=== PATIENT | female | born 1995 | race Caucasian/White ===

== ENCOUNTER 2018-06-23 13:17 | Emergency (ER) | payer OTHER ==
[~2018-06-23] VITALS: Ht 160 cm; Wt 104.3 kg
[2018-06-23] MEDS ORDERED: SYNTHROID50 MCG PO (13:36)
[2018-06-23 14:03] LABS: ABSOLUTE BASOPHILS 0.1 thou/uL (0.0-0.2); ABSOLUTE EOSINOPHILS 0.1 thou/uL (0.0-0.7); ABSOLUTE LYMPHOCYTES 1.9 thou/uL (0.8-5.3); ABSOLUTE MONOCYTES 0.7 thou/uL (0.0-1.2); ABSOLUTE NEUTROPHILS 9.1 thou/uL (1.6-8.1); BASOPHILS 0.5 %; EOSINOPHILS 0.9 %; HEMATOCRIT 40.9 % (37.0-47.0); HEMOGLOBIN 13.9 gm/dL (12.0-15.0); LYMPHOCYTES 15.8 %; MCHC 33.9 g/dL (28.0-37.0); MCV 88.4 fL (80.0-100.0); MPV 9.7 fl. (7.2-11.1); NUCLEATED RBCS 0 /100WBC; PLATELET COUNT* 230 thou/uL (150-400); POLYS 76.8 %; RBC 4.62 mil/uL (4.20-5.00); RDW-CV 13.2 % (10.5-14.5); WBC 11.8 thou/uL (4.0-11.0)
[2018-06-23 14:17] LABS: APTT 25.9 Seconds (25.0-31.3); PROTIME 10.6 Seconds (9.20-11.50)
[2018-06-23 14:18] LABS: ANION GAP 5 mmol/L (7-16); BUN 18 mg/dL (7-18); CALCIUM 9.1 mg/dL (8.5-10.1); CHLORIDE 103 mmol/L (98-107); CO2 31 mmol/L (21-32); GLUCOSE 115 mg/dL (70-99); POTASSIUM 3.9 mmol/L (3.5-5.1); SODIUM 139 mmol/L (136-145); TROPONIN-I LEVEL <0.06 ng/mL (<0.06)
[2018-06-23 14:22] LABS: ALBUMIN 3.9 g/dL (3.4-5.0); ALKALINE PHOSPHATASE 114 U/L (46-116); CK-MB MASS 1.3 ng/mL (<0.5-3.6); LIPASE 159 U/L (73-393); MAGNESIUM 2.1 mg/dL (1.8-2.4); NT-PRO BRAIN NAT PEPTIDE 44 pg/mL (<300); SGOT 20 U/L (15-37); SGPT 33 U/L (30-65); TOTAL BILIRUBIN 0.4 mg/dL (<0.1-1.0); TOTAL PROTEIN 7.6 g/dL (6.4-8.2)
[2018-06-23 14:58] VITALS: BP 102/55
--- NOTE | 2018-06-24 17:36 | EKG ---
[place] [address] ELECTROCARDIOGRAM REPORT Name: LUIS FELIPE SMITH Room: [facility]#: [id number] Admission: 06/23/18 Attend Phys: Discharge: 06/23/18 Date of : [birth year] Report #: [id number] THIS REPORT FOR: //name// [facility] ED Test Date: 2018-06-23 Test Time: 13:24:00 Pat Name: LUIS FELIPE SMITH Department: Room: Gender: F [employer] Cloth: Sheryl SHIPLEY : 1995 Requested By: Beltran Jackson Order Number: [id number] MD: Jonathan Thacker Measurements Intervals [place] Rate: 66 P: 20 NV: 162 QRS: 19 QRSD: 94 T: 30 QT: 404 QTc: 424 Interpretive Statements Sinus rhythm RSR' in V1 or V2, right VCD or RVH Borderline T abnormalities, anterior leads No previous ECG available for comparison Electronically Signed On 06-24-2018 17:36:10 CDT by Jonathan Thacker [email or web address] <ELECTRONICALLY SIGNED> By: Jonathan Thacker MD, [facility] 06/24/18 1736 [id number] Jonathan Thacker MD, FAC /EPI
== END 2018-06-23 14:59 | disposition home or self-care (01) ==
LOC: M.ERS 13:17
PROVIDERS: Emergency Medicine
DX: F41.9 Anxiety disorder, unspecified (principal); R07.89 Other chest pain; E03.9 Hypothyroidism, unspecified